=== PATIENT | female | born 1980 | race Caucasian/White ===

== ENCOUNTER 2016-06-24 18:56 | Emergency (ER) | payer BC ==
[~2016-06-24] VITALS: Wt 99.8 kg
[~2016-06-24 18:56] MED LIST: ABILIFY10 MG PO; AMBIEN10 M1 PO; BACTRIM DS 8001 TA1 PO; CIPRO500 MG PO; CLARITIN10 MG PO; CORTISPORIN SUS10 ML OT; CYMBALTA30 MG PO; Effexor25 MG PO; FLAGYL500 MG PO; FLEXERIL10 MG PO; FLONASE ALLERG9.9 ML NAS; Fioricet 325 MG1 TAB PO; Hyzaar 12.5 MG-1 TAB PO; INDERAL LA80 MG PO; K-DUR 20MEQ20 MEQ PO; K-Dur 20MEQ20 MEQ PO; KCL PO; LATU60TA PO; LISINOPRIL40 MG PO; LOMOTIL 0.025 M1 TA1 PO; Lopressor25 MG PO; MEDROL DOSEPAK4 MG PO; METFORMIN500 MG PO; MOTRIN800 MG PO; Magnesium Oxid400 MG PO; NAPROSYN500 MG PO; PAXIL30 MG PO; PREDNICOT20 MG PO; PREDNISONE10 MG PO; TOPAMAX50 MG PO; TRINTELLIX20 MG PO; VICODIN ES 7501 TA1 PO; VICTOZA6 MG/ML SC; ZESTRIL10 MG PO; ZITHROMAX250 MG PO; ZOFRAN ODT4 MG SL; ZOFRAN ODT8 MG PO; ZOFRAN4 MG PO; [UNRECOGNIZED DRUG - OTHER] PO; [UNRECOGNIZED DRUG - OTHER] PO; [UNRECOGNIZED DRUG - REMARK]
[2016-06-24] MEDS ORDERED: PREDNISONE20 M1 PO (19:49)
[2016-06-24] MEDS ORDERED: ATARAX,VISTARIL50 MG PO (19:49)
== END 2016-06-24 20:00 | disposition home or self-care (01) ==
LOC: ED 18:56
DX: L23.9 Allergic contact dermatitis, unspecified cause (principal); Z98.890 Other specified postprocedural states; Z98.51 Tubal ligation status; Z79.899 Other long term (current) drug therapy; Z88.1 Allergy status to other antibiotic agents

== ENCOUNTER 2017-04-26 14:52 | Emergency (ER) | payer BC ==
[~2017-04-26] VITALS: Ht 157.4 cm; Wt 99.8 kg
[~2017-04-26 14:52] MED LIST changes: +ATARAX,VISTARIL50 MG PO; +PREDNISONE20 M1 PO
[2017-04-26 15:25] LABS: BILIRUBIN NEGATIVE (NEGATIVE); BLOOD 3+ (NEGATIVE); CLARITY CLOUDY (CLEAR); COLOR YELLOW (YELLOW); GLUCOSE NEGATIVE (NEGATIVE); KETONE NEGATIVE (NEGATIVE); LEUKO ESTERASE 3+ (NEGATIVE); NITRITE NEGATIVE (NEGATIVE)
[2017-04-26 15:35] LABS: EPITHELIAL CELLS TNTC; WBC TNTC wbc/hpf (0-5)
[2017-04-26 15:36] LABS: BACTERIA 1+; MUCOUS TRACE
[2017-04-26] MEDS ORDERED: PYRIDIUM200 M1 PO (15:49)
[2017-04-26] MEDS ORDERED: MACROBID100 M1 PO (15:49)
== END 2017-04-26 16:02 | disposition home or self-care (01) ==
LOC: ED 14:52
PROVIDERS: Nurse Practitioner Family
DX: N39.0 Urinary tract infection, site not specified (principal); R31.9 Hematuria, unspecified; Z88.1 Allergy status to other antibiotic agents

== ENCOUNTER 2017-05-12 09:13 | Emergency (ER) | payer BC ==
[~2017-05-12] VITALS: Ht 157.4 cm; Wt 98.4 kg
[~2017-05-12 09:13] MED LIST changes: +MACROBID100 M1 PO; +PYRIDIUM200 M1 PO
[2017-05-12 09:52] LABS: BILIRUBIN NEGATIVE (NEGATIVE); BLOOD 2+ (NEGATIVE); CLARITY SL CLOUDY (CLEAR); COLOR YELLOW (YELLOW); GLUCOSE NEGATIVE (NEGATIVE); KETONE NEGATIVE (NEGATIVE); LEUKO ESTERASE NEGATIVE (NEGATIVE); NITRITE NEGATIVE (NEGATIVE); UROBILINOGEN 0.2 E.U./dl (0.2-1.0)
[2017-05-12 10:06] LABS: BACTERIA 1+; EPITHELIAL CELLS 21-30
== END 2017-05-12 11:32 | disposition home or self-care (01) ==
LOC: ED 09:13
PROVIDERS: Emergency Medicine
DX: R30.0 Dysuria (principal); M54.9 Dorsalgia, unspecified; L29.8 Other pruritus; Z88.0 Allergy status to penicillin; Z88.1 Allergy status to other antibiotic agents

== ENCOUNTER → 2018-11-30 | Outpatient (CLI) | payer OTHER | END | disposition home or self-care (01) | LOC: ORTHO 00:34 | DX: M25.512 Pain in left shoulder (principal) ==

== ENCOUNTER → 2019-01-13 | Outpatient (CLI) | payer OTHER | END | disposition home or self-care (01) | LOC: MRI 12-30 14:00 | DX: S46.012A Strain of muscle(s) and tendon(s) of the rotator cuff of left shoulder, initial encounter (principal); M75.42 Impingement syndrome of left shoulder; M19.012 Primary osteoarthritis, left shoulder; M75.92 Shoulder lesion, unspecified, left shoulder; M75.52 Bursitis of left shoulder; R60.9 Edema, unspecified; X58.XXXA Exposure to other specified factors, initial encounter; Y93.89 Activity, other specified; Y92.89 Other specified places as the place of occurrence of the external cause; Y99.8 Other external cause status ==